=== PATIENT | male | born 1995 | race Caucasian/White ===

== ENCOUNTER 2016-08-30 21:15 | Emergency (ER) | payer OTHER ==
[2016-08-30] MEDS ORDERED: ONDANSETRON DISINTEGRATING 4 MG TAB ONE (21:39)
[2016-08-30] MEDS ORDERED: ONDANSETRON DISINTEGRATING 4 MG TAB PO ONE (21:42)
[2016-08-30] MEDS ORDERED: fentaNYL 100 MCG/2 ML INJ ONE (22:04)
[2016-08-30] MEDS ORDERED: PROPOFOL 200 MG/20 ML VIAL IVP ONE (22:05)
[2016-08-30] MEDS ORDERED: fentaNYL 100 MCG/2 ML INJ IVP ONE (22:05)
[2016-08-30] MEDS ORDERED: PROPOFOL 200 MG/20 ML VIAL ONE (22:05)
--- NOTE | 2016-08-30 22:53 | EDPHY ---
H & P Stated Complaint: right shoulder/ arm injury Time Seen by Provider: 08/30/16 21:48 HPI/ROS: Chief Complaint: Right shoulder pain HPI: 21-year-old male was playing hockey this morning when he was checked into the boards. He had the medially onset of right shoulder pain and noted a deformity. Does not have a history of prior injuries in the past. Did not hit his head. No loss of consciousness. Is without other complaints at this time. Last ate at 7 o'clock this evening. ROS: 10 point Review of Systems is negative except as noted in the HPI. PMH: None Medications: None Allergies: No known drug allergies Social History: No smoking, occasional alcohol, no recreational drug use Family History: non-contributory Physical Exam: Gen: Awake, Alert, No Distress HEENT: Nose: no rhinorrhea Eyes: PERRLA, EOMI Mouth: Moist mucosa Neck: Supple, no JVD Chest: nontender, lungs clear to auscultation Heart: S1, S2 normal, no murmur Abd: Soft, non-tender, no guarding Back: no CVA tenderness, no midline tenderness Ext: no edema, right shoulder is deformed consistent with an anterior shoulder dislocation. He has no humeral head tenderness. No clavicular tenderness. Decreased range of motion secondary to pain. He has normal sensation in the deltoid. Cap refills less than 2 seconds. 2+ radial and ulnar pulses. Sensations intact in the radial median and ulnar nerve distribution. Skin: no rash Neuro: CN II-XII intact, Sensation grossly intact, Strength 5/5 in bilateral upper and lower extremities - Personal History Current Tetanus Diphtheria and Acellular Pertussis (TDAP): Yes - Medical/Surgical History Hx Asthma: No Hx Chronic Respiratory Disease: No Hx Diabetes: No Hx Cardiac Disease: No Hx Renal Disease: No Hx Cirrhosis: No Hx Alcoholism: No Hx HIV/AIDS: No Hx Splenectomy or Spleen Trauma: No - Social History Smoking Status: Never smoked Constitutional: Initial Vital Signs Temperature (C) 37 C 08/30/16 21:19 Heart Rate 78 08/30/16 21:19 Respiratory Rate 20 08/30/16 21:19 Blood Pressure 140/78 H 08/30/16 21:19 O2 Sat (%) 96 08/30/16 21:19 O2 Delivery Mode [Procedural Room Air 4th] O2 Delivery Mode [Procedural Room Air 3rd] O2 Delivery Mode [Procedural Non-Rebreather Mask 1st] O2 Delivery Mode Room Air O2 (L/minute) [Procedural 2nd] 15 O2 (L/minute) [Procedural 1st] 15 O2 (L/minute) 15 Allergies/Adverse Reactions: No Known Allergies Allergy (Unverified 08/30/16 21:19) Home Medications: Medication Instructions Recorded NK [No Known Home Meds] 08/30/16 Medical Decision Making - Diagnostics Imaging Results: Imaging Impressions Shoulder X-Ray 08/30/16 22:24 Impression: 1. Good alignment of right humeral head postreduction. Imaging: I viewed and interpreted images myself Procedures: Procedure: Procedural sedation. Indication: Right shoulder dislocation. A pre-sedation evaluation was completed on the patient just prior to the procedure. Patient is an appropriate candidate for procedural sedation with ASA class 1 E. The risks of the sedation were discussed including but not limited to dysrhythmia, need for airway intervention or general anesthesia, disability, ; and verbal consent obtained. A timeout was observed and patient's identity confirmed. The patient was sedated with fentanyl and propofol. The patient was monitored with continuous pulse oximetry, capnography , and school lunch monitor. There were no complications and no significant hypoxemia. I remained at the bedside for the sedation. The total time I spent in the procedural sedation was 20 minutes. Procedure: Dislocation reduction. The shoulder was reduced in the usual fashion without complications. Post reduction the patient's neurovascular exam is normal. Post reduction x-ray demonstrates reduction of the joint to the anatomic position. The procedure was performed by myself. ED Course/Re-evaluation: Patient improved after reduction. Is placed in a shoulder immobilizer. Postreduction x-ray shows good anatomic alignment. Patient will be discharged with follow up with Orthopedics, he may take ibuprofen and acetaminophen as needed for pain. - Data Points Medications Given: Discontinued Medications Fentanyl (Sublimaze) 50 mcg IVP EDNOW ONE Stop: 08/30/16 22:06 Last Admin: 08/30/16 22:09 Dose: 50 mcg Ondansetron HCl (Zofran Odt) 4 mg PO EDNOW ONE Stop: 08/30/16 21:43 Last Admin: 08/30/16 21:43 Dose: 4 mg Propofol (Diprivan) 160 mg IVP EDNOW ONE Stop: 08/30/16 22:06 Last Admin: 08/30/16 22:12 Dose: 160 mg Departure - Departure Disposition: Home, Routine, Self-Care Instructions: Ibuprofen (By mouth), Shoulder Dislocation (ED), RICE Therapy (ED ) Additional Instructions: FOLLOW UP WITH ORTHO THIS WEEK. KEEP ARM IN SLING TEL FOLLOWED UP WITH ORTHO M.D. IBUPROFEN 600 MG EVERY 6 HOURS FOR THE NEXT 3 DAYS Referrals: NONE *PRIMARY CARE P,. [Primary Care Provider] - As per Instructions Chikis Evans MD [Medical Doctor] - As per Instructions
[2016-08-30 23:25] VITALS: TEMP 97.9; O2SAT 99
[2016-08-30 23:42] VITALS: BP 132/75; PULSE 87; RESP 16
== END 2016-08-30 23:41 | disposition home or self-care (01) ==
PROC: 0RSKXZZ Reposition Left Shoulder Joint, External Approach (ICD-10-PCS; principal; 2016-08-30)
DX: S43.014A Anterior dislocation of right humerus, initial encounter (principal); X58.XXXA Exposure to other specified factors, initial encounter; Y99.8 Other external cause status; Y93.65 Activity, lacrosse and field hockey
CPT/HCPCS: J2704; J3010